=== PATIENT | male | born 1945 | race Caucasian/White ===

== ENCOUNTER 2016-10-17 10:05 | Outpatient (CLI) | payer OTHER | END 2016-10-17 10:06 | disposition home or self-care (01) | DX: G47.30 Sleep apnea, unspecified (principal); G47.8 Other sleep disorders; R06.83 Snoring; R53.83 Other fatigue ==

== ENCOUNTER 2016-11-02 23:04 | Outpatient (CLI) | payer OTHER | END 2016-11-02 23:05 | disposition home or self-care (01) | DX: G47.33 Obstructive sleep apnea (adult) (pediatric) (principal); G47.61 Periodic limb movement disorder; Z68.25 Body mass index [BMI] 25.0-25.9, adult ==